=== PATIENT | female | born 1960 | race Caucasian/White ===

== ENCOUNTER 2016-06-10 09:00 | Inpatient (IN) | payer OTHER ==
--- NOTE | 2016-06-09 15:38 | GHP ---
[f rep st] PREOP HISTORY AND PHYSICAL Amended report DATE OF ADMISSION: She will be an a.m. admission for surgery at [facility] on June 18, 2016. PROBLEM: Right knee arthritis. HISTORY OF PRESENT ILLNESS: The patient is a 55-year-old woman admitted for a right total knee arthroplasty. She has had progressive pain in her right knee for a number of years. She had some type of ligament reconstruction of the right knee when she was in her 20s. She has had previous arthroscopic surgery by Dr. Post for some type of arthroscopic cleanout procedure. That operation was not helpful. She knows that her right knee is ACL deficient. She occasionally feels instability when she walks her dog. She has tried viscosupplementation injections but they helped the left knee but not the right knee. She has failed nonsurgical treatment. Her activities and function are sufficiently limited that she wants to go ahead with a right total knee arthroplasty. PAST MEDICAL HISTORY: She has a known essential tremor. She uses propranolol as needed. She has been diagnosed with sleep apnea. She tried a CPAP machine but it was not helpful. No history of heart disease, stents, DVT, or hepatitis. No history of previous MRSA staph infections. CURRENT MEDICATIONS: Propranolol. Modafinil. DRUG ALLERGIES: Penicillin causes throat swelling and hives. METAL ALLERGIES: None. LATEX ALLERGY: None. SOCIAL HISTORY: The patient is single. She is a psychotherapist. She does not smoke cigarettes and occasionally drinks alcohol. She lives alone. Her sister is coming out to help her postoperatively for 1 week. FAMILY HISTORY: Positive for hypothyroidism, congestive heart failure, and embolism. Her mother also had arthritis. PHYSICAL EXAMINATION: GENERAL: She is an alert, healthy-appearing woman. VITAL SIGNS: Height 5 feet 6 inches. Weight 160 pounds. BMI 25.8. EYES: Conjunctivae and sclerae are clear. Pupils are round and reactive. MOUTH: Good oral hygiene. No loose teeth. CHEST: Clear. HEART: Regular rhythm. No murmurs. EXTREMITIES: Pertinent findings limited to her right knee. She has a long lateral incision. There is a short medial incision. She lacks 3-5 degrees of full extension and flexes to 110 degrees. Her collateral ligaments are stable. IMAGING: Her films show degenerative arthritis in the medial compartment of her right knee. She has a single screw in her lateral femoral condyle. IMPRESSION ON ADMISSION: 1. Right knee degenerative arthritis status post ACL reconstruction. 2. Essential tremor. PLAN: She will undergo a right total knee arthroplasty. The surgery has been described to her including the risks, complications, expectations, and recovery time. I have stressed the importance of postoperative physical therapy. I have advised her that a small percentage of people do not get a good result with total knee replacement. She understands that she is relatively young for a total knee replacement and might need revision surgery in her lifetime. Anesthesia choices and nonsurgical options have been presented to her. All her questions have been answered, and she consents to surgery. /[id number]/MODL Add acc#, 06/10/16, misa MENDOZA
[2016-06-10 10:12] LABS: % IMMATURE GRANULYOCYTES 0.1 % (0.0-1.1); ABSOLUTE IMMATURE GRANULOCYTES 0.01 10^3/uL (0.00-0.10); ADD DIFF? NO; ADD MORPH? NO; ADD SCAN? NO; ATYPICAL LYMPHOCYTE FLAG 30 (0-99); FRAGMENT RBC FLAG 0 (0-99); HEMATOCRIT 42.8 % (38.0-47.0); HEMOGLOBIN 13.9 g/dL (12.6-16.3); LEFT SHIFT FLG 0 (0-99); LIPEMIA HEMOLYSIS FLAG 80 (0-99); MEAN CELL HEMOGLOBIN 28.7 pg (27.9-34.1); MEAN CELL HEMOGLOBIN CONCENTR. 32.5 g/dL (32.4-36.7); MEAN CELL VOLUME 88.2 fL (81.5-99.8); MEAN PLATELET VOLUME 11.8 fL (8.7-11.7); PLATELET CLUMPS FLAG 10 (0-99); PLATELET COUNT 313 10^3/uL (150-400); RED BLOOD CELL COUNT 4.85 10^6/uL (4.18-5.33); RED CELL DISTRIBUTION WIDTH 14.6 % (11.5-15.2)
[2016-06-18] MEDS ORDERED: ACETAMINOPHEN 325 MG TAB PO ONE (06:00)
[2016-06-18] MEDS ORDERED: POVIDONE-IODINE 20 ML in SODIUM CL IRRIG SOLUTION 500 ML IRR ONE (06:00)
[2016-06-18] MEDS ORDERED: FAMOTIDINE 20 MG TAB PO ONE (06:00)
[2016-06-18] MEDS ORDERED: DEXAMETHASONE 4 MG/ML VIAL IVP ONE (06:00)
[2016-06-18] MEDS ORDERED: CHLORHEXIDINE GLUC HIBICLENS 118 ML BTL TP ONE (06:00)
[2016-06-18] MEDS ORDERED: TRANEXAMIC ACID 730 MG in NS 100 ML IV ONE (06:00)
[2016-06-18] MEDS ORDERED: VANCOMYCIN HCL/NORMAL SALINE 250 ML IV ONE ×2 (06:00→22:00)
[2016-06-18] MEDS ORDERED: ROPI/epiNEPH/KETOROLAC JOINT COCKTAIL IU ONE (06:00)
[2016-06-18] MEDS ORDERED: ACETAMINOPHEN 325 MG TAB ONE (08:06)
[2016-06-18] MEDS ORDERED: FAMOTIDINE 20 MG TAB ONE (08:06)
[2016-06-18] MEDS ORDERED: DEXAMETHASONE 4 MG/ML VIAL ONE (08:06)
[2016-06-18] MEDS ORDERED: CEFAZOLIN 2 GM/DEXTROSE/100 ML BAG IV ONE (08:07)
[2016-06-18] MEDS ORDERED: fentaNYL 100 MCG/2 ML INJ ONE (08:42)
[2016-06-18] MEDS ORDERED: MIDAZOLAM 2 MG/2 ML VIAL ONE ×2 (08:42→09:40)
[2016-06-18] MEDS ORDERED: ONDANSETRON 4 MG/2 ML VIAL ONE (08:43)
[2016-06-18] MEDS ORDERED: LIDOCAINE 1% 5 ML SDV ID PRN (09:01)
[2016-06-18] MEDS ORDERED: LR 1,000 ML IV ONE (09:01)
[2016-06-18] MEDS ORDERED: TRANEXAMIC ACID 3,000 MG in NS 50 ML IRR ONE (09:30)
[2016-06-18] MEDS ORDERED: PROPOFOL/EMULSION 500 MG/50 ML BOTTLE IV ONE (09:43)
[2016-06-18] MEDS ORDERED: VANCOMYCIN 1 GM VIAL IV ONE ×2 (10:32)
[2016-06-18] MEDS ORDERED: ceFAZolin 1 GM/5 ML SYR ONE (10:34)
--- NOTE | 2016-06-18 11:23 | POSTOPPROG ---
Post Op Note Date of Operation: 06/18/16 Surgeon: Callum Salcido Gut Sorter: Clark Anesthesiologist: Kingsley Anesthesia: IV Sedation, Spinal Post-op Diagnosis: right knee arthritis Procedure: R TKA Inf/Abcess present in the surg proc area at time of surgery?: No EBL: 50-100 (add canal block)
[2016-06-18] MEDS ORDERED: MODAFINIL 100 MG TAB PO PRN (11:30)
[2016-06-18] MEDS ORDERED: ASCORBIC ACID 500 MG TAB PO PRN (11:30)
[2016-06-18] MEDS ORDERED: PROPRANOLOL HCL 10 MG TAB PO PRN (11:30)
[2016-06-18] MEDS ORDERED: CYCLOBENZAPRINE 10 MG TAB PO PRN (11:31)
[2016-06-18] MEDS ORDERED: ONDANSETRON 4 MG/2 ML VIAL IVP PRN (11:31)
[2016-06-18] MEDS ORDERED: POLYETHYLENE GLYCOL 3350 17 GM PKT PO PRN (11:31)
[2016-06-18] MEDS ORDERED: PHARMACY PAIN CONSULT 1 EA MISC PRN (11:31)
[2016-06-18] MEDS ORDERED: NS 500 ML IV PRN (11:31)
[2016-06-18] MEDS ORDERED: PROMETHAZINE HCL 25 MG SUPPR PR PRN (11:31)
[2016-06-18] MEDS ORDERED: diphenhydrAMINE 25 MG CAP PO PRN (11:31)
[2016-06-18] MEDS ORDERED: TEMAZEPAM 15 MG CAP PO PRN (11:31)
[2016-06-18] MEDS ORDERED: KETOROLAC 30 MG/1 ML SDV IVP PRN (11:31)
[2016-06-18] MEDS ORDERED: DIPHENOXYLATE/ATROPINE LOMOTIL 1 TAB PO PRN (11:31)
[2016-06-18] MEDS ORDERED: BISACODYL 10 MG SUPP PR PRN (11:31)
[2016-06-18] MEDS ORDERED: traMADol 50 MG TAB PO PRN (11:31)
[2016-06-18] MEDS ORDERED: METOCLOPRAMIDE 10 MG/2 ML VIAL IVP PRN (11:31)
[2016-06-18] MEDS ORDERED: LACTULOSE 20 GM/30 ML UDCUP PO PRN (11:31)
[2016-06-18] MEDS ORDERED: MAGNESIUM HYDROXIDE 30 ML UDCUP PO PRN (11:31)
[2016-06-18] MEDS ORDERED: ONDANSETRON DISINTEGRATING 4 MG TAB PO PRN (11:31)
[2016-06-18] MEDS: LR 1,000 ML IV SCH ×2 (13:49→21:37)
[2016-06-18] MEDS: ACETAMINOPHEN 325 MG TAB PO SCH ×3 (14:07→23:57)
[2016-06-18] MEDS: oxyCODONE IR 5 MG TAB PO PRN ×4 (14:24→23:57)
--- NOTE | 2016-06-18 15:34 | GOP ---
[f rep st] OPERATIVE REPORT DATE OF OPERATION: 06/18/2016 SURGEON: Callum Salcido MD TELEVISION ANCHOR: James Joy, CARD GAME OPERATOR and Lazaro Ratliff, PAC. ANESTHESIA: A combination of Marcaine spinal and IV sedation, and adductor canal block. ANESTHESIOLOGIST: Kallie Wynn DO PREOPERATIVE DIAGNOSIS: Right knee severe degenerative arthritis. POSTOPERATIVE DIAGNOSIS: Right knee severe degenerative arthritis. PROCEDURE PERFORMED: Right total knee arthroplasty, cemented, posterior stabilized, Mak and Nephe w Journey II. FINDINGS: DESCRIPTION OF PROCEDURE: The patient was given 1 g of IV vancomycin preoperatively within 60 minut es of surgery. She also received IV tranexamic acid at a dose of 10 mg/kg. She was placed on the o perating room table and given spinal anesthesia with Marcaine by Dr. Wynn. She was then placed s upine and given IV sedation. A Hernandez catheter was not used. She wore a ÓSCAR stocking and SCD on the nonoperative leg. Her right lower extremity was prepped with ChloraPrep from the upper thigh tourn iquet to the tips of the toes. It was draped free using sterile sheets, stockinette, and Ioban plas tic adhesive drape. The lower leg was wrapped with compressive Coban. Her leg was exsanguinated wi th elevation and a 6-inch compressive wrap, and a pneumatic tourniquet was inflated to 300 mmHg. Sh e had a bulky thigh and calf. The World Health Organization time-out was performed to verify the correct patient identity and the correct surgical side and site. The Mobile time-out was also performed. The Contribayo leg holding device was sterilely attached to the operating room table and used throughout the procedure to help position the knee. A straight midline incision was made centered on the france lla. Subcutaneous tissues were sharply divided and hemostasis was obtained using electrocautery. A medial subcutaneous flap was developed. The capsule and synovium were opened in medial parapatella r fashion. Extensive degenerative changes were present throughout the knee. The medial capsule and periosteum were lightly elevated off the rim of the medial tibial plateau, all the way around to th e posteromedial corner. The medial collateral ligament was released enough to balance the medial si de of the knee. In order to improve exposure, her patella was prepared first. The original thickness of the patella was measured. Peripheral osteophytes were removed. I cut a flat surface on the back of the anders a. It was sized for a 38 mm resurfacing component. I removed enough bone from the patella such regis t the remaining bone plus the thickness of the patellar component recreated the original thickness o f the patella. The composite thickness was 22 mm. The intramedullary alignment guide system was used to set up the distal femoral cut. The distal fem ur was cut in 6 degrees of valgus. I made a +2 mm cut on the distal femur. The sizing jig was used to determine proper femoral sizing. I shifted the size 5 jig anteriorly 1 mm in order to accommoda te the size 5 femoral component without notching the anterior cortex. The 5-in-1 cutting block was applied, and the anterior and posterior condylar cuts and chamfer cuts were made. The final jig was used to remove the central portion of the distal femur to accommodate the posterior stabilized femo ral component. I was careful to determine proper rotation by referencing off Whitesides line. Each cut was checked for accuracy before and after it was made. The femur was sized for a size 5 veterans adviser ior stabilized femoral component. The trial component was tapped securely into place and was an exc ellent fit. Next, the tibia was prepared. The proximal tibial cut was made using the extramedullary alignment g uide system. The cut was made in a few degrees of posterior slope. I was careful to achieve proper varus valgus alignment and proper rotation. The posterior compartment was cleared of meniscal remn ants. Osteophytes were removed from the back of femoral condyles. I checked the flexion and extens ion gaps, and they were equal, balanced and rectangular. The tibia was sized for a size 4 component. With the trial components in place, I selected a 13 mm polyethylene posterior stabilized tibial insert. The knee came to full extension and flexed to 120 degrees. Flexion beyond that point was blocked by the bulk of her leg. There was no overstuffing i n flexion. Her collateral ligaments were stable and balanced at 90 degrees in flexion and full exte nsion. The trial patellar button was applied, and tracking was checked. Tracking was excellent wit hout any digital pressure. 40 mL of the joint anesthetic cocktail was injected in the posterior capsule, the periarticular stru ctures, the quadriceps muscle and tendon areas, and the subcutaneous tissues along the skin edges. A 2nd dose of tranexamic acid was given at a dose of 10 mg/kg. The surfaces were prepared for cemen ting. They were carefully cleaned with the pulsating lavage and carefully dried. The CarboJet ewa ce was used to blow dry the cancellous surfaces. A double batch of methylmethacrylate cement with 2 g of powdered vancomycin added was mixed. While it was still in a semi liquid state, all 3 compone nts were cemented in place. Excess cement was removed before it hardened. The 13 mm trial tibial insert was re-tried and was the proper thickness. The actual component was i nserted locked into place. The knee was thoroughly irrigated one final time with a dilute Betadine solution. The tourniquet was deflated. The total tourniquet time was 43 minutes. Topical tranexam ic acid was then instilled into the wound. It was left in place for 3 or 4 minutes and then washed out with a dilute Betadine solution. The vastus medialis portion of the extensor mechanism was repaired with several interrupted figure-o f-eight #2 FiberWire sutures. The capsule and synovium were closed first with multiple interrupted [id number] 0 PDS sutures, followed by a running #2 barbed Ethicon Stratafix PDO suture. Subcut aneous tissues were closed with a running 0 barbed Ethicon Stratafix Monoderm suture. The skin was closed with a running 3-0 barbed Ethicon Stratafix Monoderm subcuticular suture. The skin was derek d with half-inch Steri-Strips. The wound was covered with Xeroform gauze and flat 4 x 4's, and knee was wrapped with Kerlix and 6-inch compressive wrap. A long-leg ÓSCAR stocking and SCD were applied, followed by the cooling device. The patient wore a stocking and SCD on the opposite leg during the procedure. I used a size 5 cemented Mak and Nephew Oxinium posterior stabilized femoral component, a size 4 c emented tibial base plate, a 13 mm posterior stabilized tibial insert, and a 38 mm cemented round al l-polyethylene resurfacing patellar component. The estimated blood loss following placement of the tourniquet was about 100 cc. The sponge and needle counts were correct on 2 occasions. The patient was awakened from anesthesia, transferred to her gurney, and taken to PACU in satisfacto ry condition. There were no intraoperative complications. In the PACU, for additional postop pain control, Dr. Wynn administered an adductor canal block. James Joy and Andrew Ratliff acted as surgical assistants. Their assistance was a aidan thompson. /[id number]/MODL
[2016-06-18] MEDS: TRANEXAMIC ACID 650 MG TAB PO SCH (19:21)
[2016-06-18] MEDS: ASPIRIN 325 MG TAB PO SCH (20:35)
[2016-06-18] MEDS: SENNOSIDES/DOCUSATE SODIUM TAB PO SCH (20:35)
[2016-06-18] MEDS: FAMOTIDINE 20 MG TAB PO SCH (20:36)
[2016-06-19] MEDS: oxyCODONE IR 5 MG TAB PO PRN ×4 (04:20→13:46)
[2016-06-19] MEDS: TRANEXAMIC ACID 650 MG TAB PO SCH ×2 (04:20→12:41)
[2016-06-19 05:34] LABS: HEMATOCRIT 38.2 % (38.0-47.0); HEMOGLOBIN 12.4 g/dL (12.6-16.3)
[2016-06-19] MEDS: ACETAMINOPHEN 325 MG TAB PO SCH ×2 (06:23→12:41)
--- NOTE | 2016-06-19 07:28 | SOAPPROG ---
SOAP Progress Note Assessment/Plan: Assessment: Afebrile. Awake and alert. Moderate pain. Has been up and walking in room. H/H is good. Films look good. Dsg is dry. Plan: Up with PT DC later today. 06/19/16 07:27 Objective: Vital Signs Temp Pulse Resp BP Pulse Ox 36.4 C 61 16 90/50 L 89 L 06/19/16 04:00 06/19/16 04:00 06/19/16 04:00 06/19/16 04:00 06/19/16 04:00 Laboratory Results 06/19/16 04:49 06/18/16 06/19/16 06/20/16 05:59 05:59 05:59 Intake Total 4350 Output Total 0 Balance 2300 ICD10 Worksheet Patient Problems: Problems Problem Status Onset Osteoarthritis of right knee Acute
--- NOTE | 2016-06-19 07:32 | PDIAF ---
- Diagnosis Diagnosis: right knee arthritis Code Status: Full Code - Medication Management Discharge Medications: Medications to Continue on Transfer Ascorbic Acid [Vitamin C 500 mg (*)] 100 mg PO BID PRN 05/21/16 [Last Taken ] Herbals/Supplements -Info Only 1 ea PO DAILY 05/21/16 [Last Taken 06/11/16] Modafinil [Provigil 100 mg (*)] 50 mg PO DAILY PRN 05/21/16 [Last Taken 06/15/16 ] Multivitamins [Multivitamin (*)] 1 each PO DAILY 05/21/16 [Last Taken 06/11/16] Propranolol HCl [Inderal 10mg (*)] 10 mg PO DAILY PRN 05/21/16 [Last Taken 06/11] Acetaminophen [Tylenol 325mg (*)] 650 mg PO Q6HRS #0 tab 06/19/16 [Last Taken Unknown] Aspirin [Aspirin 325 mg (*)] 325 mg PO DAILY #21 tab 06/19/16 [Last Taken Unknown] Ondansetron Odt [Zofran Odt 4 mg (*)] 4 mg PO Q4HRS PRN #0 tab 06/19/16 [Last Taken Unknown] oxyCODONE IR [Oxycodone Ir (*)] 5 - 10 mg PO Q3HRS PRN #0 tab 06/19/16 [Last Taken Unknown] traMADol [Ultram 50 mg (*)] 50 mg PO Q6HRS PRN #0 tab 06/19/16 [Last Taken Unknown] Discharge Medications: Refer to the Discharge Home Medication list for PRN reason. PICC Care - Routine: N/A - Orders Services needed: Home Care, Physical Therapy Home Care Face to Face: I certify that this patient was under my care and that I had the required ochl-on-ottb encounter meeting the encounter requirements on the discharge day. My findings support the fact that the patient is homebound as defined in CMS Chapter 7 Medicare Benefits Manual 30.1.1, The condition of the patient is such that there exists a normal inability to leave home and consequently, leaving home would require a considerable and taxing effort. Diet Recommendation: no restrictions on diet Diet Texture: Regular Texture Diet Hernandez: Not applicable Tito Stockings Discontinue Date: 1 week Wound Care Instructions: keep clean and dry. You may shower. Activity/Weight Bearing Restrictions: as tolerated. - Follow Up Care Current Providers and Referrals: Salina Reece MD [Primary Care Provider] - Callum Salcido MD [Medical Doctor] - 07/04/16
--- NOTE | 2016-06-19 07:46 | GDS ---
[f rep st] DISCHARGE SUMMARY ADMISSION DIAGNOSIS: Right knee severe degenerative arthritis. DISCHARGE DIAGNOSIS: Right knee severe degenerative arthritis. OPERATION PERFORMED: June 19, 2016, a right total knee arthroplasty. POSTOPERATIVE COMPLICATIONS: None. CONDITION ON DISCHARGE: Improved. DESCRIPTION OF HOSPITAL COURSE: The patient was admitted to the hospital on the morning of surgery. Her admission CBC was normal. The same day, under a combination of Marcaine, spinal anesthesia, I V sedation, and adductor canal block, she underwent a right total knee arthroplasty. Postoperativel y, she was treated with multimodal DVT prophylaxis, including aspirin and early mobilization. On e first postoperative day, her hemoglobin and hematocrit were 12.4 and 38.2. She did not require an y transfused blood. She was seen by Physical Therapy and made good progress with ambulation, knee r kaylen of motion, and stairs. By the time of discharge, she was afebrile and was independent, walking with a walker. DISPOSITION: Patient is discharged to her home. She will have home physical therapy. She may prog ress to full weightbearing on the right as tolerated. Continue ÓSCAR stockings for 1 week. Continue aspirin 325 mg p.o. daily for 21 days. She will have home physical therapy followed by outpatient p hysical therapy. I will see her back in the office on July 04, 2016. If there are any problems, she is to call me at the office. /[id number]/MODL
[2016-06-19] MEDS: FAMOTIDINE 20 MG TAB PO SCH (08:40)
[2016-06-19] MEDS: SENNOSIDES/DOCUSATE SODIUM TAB PO SCH (08:40)
[2016-06-19] MEDS: ASPIRIN 325 MG TAB PO SCH (08:40)
[2016-06-19] MEDS ORDERED: Herbals/Supplements -Info Only PO SCH (09:00)
[2016-06-19] MEDS ORDERED: MULTIVITAMINS 1 EACH TAB PO SCH (09:00)
[2016-06-19 09:20] VITALS: PULSE 60; RESP 14; TEMP 98.2; O2SAT 97
[2016-06-19 11:55] VITALS: BP 104/51
== END 2016-06-19 14:10 | disposition home health service (06) | DRG 470 ==
LOC: F3N 06-18 07:18
PROVIDERS: ADMIT Orthopaedic Surgery; ATTEND Orthopaedic Surgery
PROC: 0SRC0J9 Replacement of Right Knee Joint with Synthetic Substitute, Cemented, Open Approach (ICD-10-PCS; principal; 2016-06-18 09:15)
DX: M17.11 Unilateral primary osteoarthritis, right knee (principal); G25.0 Essential tremor; G47.33 Obstructive sleep apnea (adult) (pediatric)
CPT/HCPCS: 97110-GP; 97116-GP; 97161-GP; 97165-GO; C1713; J0171; J0690; J1100; J1885; J2250; J2405; J2704; J2795; J3010; J3370

== ENCOUNTER → 2016-06-26 | Outpatient (CLI) | payer OTHER | LOC: FIMAGING 16:33 | PROVIDERS: ATTEND Orthopaedic Surgery | DX: M79.661 Pain in right lower leg (principal); M79.89 Other specified soft tissue disorders; Z96.651 Presence of right artificial knee joint ==

== ENCOUNTER 2017-05-13 19:15 | Emergency (ER) | payer OTHER ==
[2017-05-13 19:22] VITALS: RESP 16; TEMP 97.9; O2SAT 98
--- NOTE | 2017-05-13 19:32 | EDPHY ---
H & P Stated Complaint: FALL OFF HORSE ONTO LEFT SIDE,HIP ARM SHOULDER NO LOC Time Seen by Provider: 05/13/17 19:27 HPI/ROS: CHIEF COMPLAINT: Fell force HISTORY OF PRESENT ILLNESS: Patient is a 56-year-old female who was riding a horse in a arena of soft dirt. She fell onto her left side. She has pain in her left ribs left hip and left knee. She is ambulatory. She has pain with deep inspiration. She denies head injury neck or back pain. No loss of consciousness. No vomiting. She has a history of essential tremor but nothing else. REVIEW OF SYSTEMS: Constitutional: denies: chills, fever, recent illness, recent injury EENTM: denies: blurred vision, double vision, nose congestion Respiratory: denies: cough, shortness of breath Cardiac: denies: chest pain, irregular heart rate, lightheadedness, palpitations Gastrointestinal/Abdominal: denies: abdominal pain, diarrhea, nausea, vomiting, blood streaked stools Genitourinary: denies: dysuria, frequency, hematuria, pain Musculoskeletal: See HPI Skin: denies: lesions, rash, jaundice, bruising Neurological: denies: headache, numbness, paresthesia, tingling, dizziness, weakness Hematologic/Lymphatic: denies: blood clots, easy bleeding, easy bruising Immunologic/allergic: denies: HIV/AIDS, transplant EXAM: GENERAL: Well-appearing, well-nourished and in no acute distress. HEAD: Atraumatic, normocephalic. EYES: Pupils equal round and reactive to light, extraocular movements intact, sclera anicteric, conjunctiva are normal. ENT: TMs normal, nares patent, oropharynx clear without exudates. Moist mucous membranes. NECK: Normal range of motion, supple without lymphadenopathy or JVD. LUNGS: Left rib pain posteriorly, no crepitus, Breath sounds clear to auscultation bilaterally and equal. No wheezes rales or rhonchi. HEART: Regular rate and rhythm without murmurs, rubs or gallops. ABDOMEN: Soft, nontender, normoactive bowel sounds. No guarding, no rebound. No masses appreciated. BACK: No CVA tenderness, no spinal tenderness, step-offs or deformities EXTREMITIES: No obvious swelling or deformity. Ambulatory. NEUROLOGICAL: Cranial nerves II through XII grossly intact. Normal speech, normal gait. 5/5 strength, normal movement in all extremities, normal sensation PSYCH: Normal mood, normal affect. SKIN: Warm, dry, normal turgor, no visible rashes or lesions. Source: Patient Exam Limitations: No limitations - Personal History Current Tetanus/Diphtheria Vaccine: Yes Current Tetanus Diphtheria and Acellular Pertussis (TDAP): Yes - Medical/Surgical History Hx Asthma: No Hx Chronic Respiratory Disease: No Hx Diabetes: No Hx Cardiac Disease: No Hx Renal Disease: No Hx Cirrhosis: No Hx Alcoholism: No Hx HIV/AIDS: No Hx Splenectomy or Spleen Trauma: No Other PMH: R. Shoulder Repair, R. Knee Surgery, L. Knee Surgery, Essential Tremors, Sleep Apnea - Family History Significant Family History: No pertinent family hx - Social History Smoking Status: Never smoked Alcohol Use: Sober Drug Use: None Constitutional: Initial Vital Signs Temperature (C) 36.6 C 05/13/17 19:19 Heart Rate 73 05/13/17 19:19 Respiratory Rate 16 05/13/17 19:19 Blood Pressure 129/66 H 05/13/17 19:19 O2 Sat (%) 98 05/13/17 19:19 O2 Delivery Mode Room Air Allergies/Adverse Reactions: Penicillins Allergy (Verified 05/13/17 19:22) UNABLE TO BREATHE Home Medications: Medication Instructions Recorded Ascorbic Acid [Vitamin C 500 mg 100 mg PO BID PRN 05/21/16 (*)] Herbals/Supplements -Info Only 1 ea PO DAILY 05/21/16 Multivitamins [Multivitamin (*)] 1 each PO DAILY 05/21/16 Propranolol HCl [Inderal 10mg (*)] 10 mg PO DAILY PRN 05/21/16 Acetaminophen [Tylenol 325mg (*)] 650 mg PO Q6HRS #0 tab 06/19/16 oxyCODONE/APAP 5/325 [Percocet 1 - 2 tab PO Q4H PRN #10 tab 05/13/17 5/325 (*)] Medical Decision Making - Diagnostics Imaging: Discussed imaging studies w/ at home independent call center agent Radiologist Procedures: Procedure: Splint placement. A straight leg splint was applied. After application of the splint I returned and re-examined the patient. The splint was adequately immobilizing the joint and distal to the splint the patient's circulation and sensation was intact. ED Course/Re-evaluation: Patient has a proximal fibular head fracture on x-ray. She denies any ankle pain. She does have some tenderness to her mid fibula region. I will x-ray the tib-fib as well. She did not complain of this initially. She is able to bear weight and ambulate. 8:30 p.m. We discussed the imaging results. She does have rib fractures as well. I spoke with Dr. Pablo who recommends Meliton wrap versus Bma boot for the fibular head fracture. She does not need to be nonweightbearing. Patient' s friend is requesting CT scan. She does not have altered mental status to me but does have a mild headache. Head CT ordered in this adult patient for trauma for the following indication: The headache, confusion 9:00 p.m. the patient is feeling much better. We discussed her head CT. She is reassured. She probably has a mild concussion. We will place her in a straight leg brace. She can be weight-bearing according to Orthopedics. Dr. Pablo. She will follow up with him. We discussed rib injuries and healing process. She is requesting a prescription for Percocet. Differential Diagnosis: Partial list of the Differential diagnosis considered include but were not limited to; fibula fracture, knee injury, rib injury, pneumothorax and although unlikely based on the history and physical exam, I also considered head injury, neck injury, pelvic injury. I discussed these differential diagnoses and the plan with the patient as well as the usual and expected course. The patient understands that the diagnosis is provisional and that in medicine we are not always correct and that further workup is often warranted. Usual and customary warnings were given. All of the patient's questions were answered. The patient was instructed to return to the emergency department should the symptoms at all worsen or return, otherwise to followup with the physician as we discussed. - Data Points Laboratory Results: Laboratory Results 05/13/17 19:37 05/13/17 19:37 Medications Given: Discontinued Medications Hydrocodone Bitart/Acetaminophen ([place] 5/325mg Prepack#6) 1 btl TAKEHOME EDNOW ONE Stop: 05/13/17 21:27 Last Admin: 05/13/17 21:35 Dose: 1 btl Oxycodone/Acetaminophen (Percocet 5/325) 1 tab PO EDNOW ONE Stop: 05/13/17 20:47 Last Admin: 05/13/17 20:47 Dose: 1 tab Departure - Departure Disposition: Home, Routine, Self-Care Clinical Impression: Multiple fractures of ribs, left side, initial encounter for closed fracture Fracture of proximal end of left fibula Qualifiers: Encounter type: initial encounter Fracture type: closed Fracture morphology: unspecified fracture morphology Qualified Code(s): S82.832A - Other fracture of upper and lower end of left fibula, initial encounter for closed fracture Concussion Qualifiers: Encounter type: initial encounter Loss of consciousness presence/duration: with LOC of unspecified duration Qualified Code(s): S06.0X9A - Concussion with loss of consciousness of unspecified duration, initial encounter Condition: Fair Instructions: Hydrocodone/Acetaminophen (By mouth), Leg Fracture (ED), Rib Fracture (ED), Concussion (ED) Referrals: Maurilio Pablo MD [Medical Doctor] - 5-7 days, call for appt. Salina Reece MD [Primary Care Provider] - 2-3 days, call for appt. Prescriptions: oxyCODONE/APAP 5/325 [Percocet 5/325 (*)] 1 - 2 tab PO Q4H PRN #10 tab PRN Reason: Pain, Severe
[2017-05-13 19:47] LABS: PLATELET COUNT 328 10^3/uL (150-400)
[2017-05-13] MEDS ORDERED: OXYCODONE/APAP 5/325 TAB ONE (20:45)
[2017-05-13] MEDS ORDERED: OXYCODONE/APAP 5/325 TAB PO ONE (20:46)
[2017-05-13] MEDS ORDERED: HYDROCOD/APAP 5/325 PREPACK#6 BTL TAKEHOME ONE (21:26)
[2017-05-13 21:49] VITALS: BP 125/69; PULSE 62
== END 2017-05-13 21:48 | disposition home or self-care (01) ==
DX: S22.42XA Multiple fractures of ribs, left side, initial encounter for closed fracture (principal); S82.832A Other fracture of upper and lower end of left fibula, initial encounter for closed fracture; S06.0X9A Concussion with loss of consciousness of unspecified duration, initial encounter; V80.010A Animal-rider injured by fall from or being thrown from horse in noncollision accident, initial encounter; Y99.8 Other external cause status; Y93.52 Activity, horseback riding
CPT/HCPCS: L1830

== ENCOUNTER 2017-05-23 13:33 | Emergency (ER) | payer OTHER ==
--- NOTE | 2017-05-23 13:50 | EDPHY ---
H & P Time Seen by Provider: 05/23/17 13:40 HPI/ROS: CHIEF COMPLAINT: Difficulty breathing HISTORY OF PRESENT ILLNESS: Patient is a 48-year-old female who presents emergency department with increasing shortness of breath. The patient states that on 05/13 she was thrown from a horse. She was seen in the emergency department and diagnosed with left-sided rib fractures, left fibular fracture, and concussion. She saw her orthopedic physician yesterday, Dr. Salcido. He prescribed her tramadol. Patient states that when she woke this morning she had increasing shortness of breath. She felt as though her left lung was congested. She denies any significant cough. She feels fatigued. No fevers or chills. No nausea or vomiting. She still has moderate pain with movement and her left-sided ribs. No significant headache. REVIEW OF SYSTEMS: My complete review of systems is negative except as mentioned in the HPI. Past Medical/Surgical History: Includes sleep apnea, central tremor, left-sided rib fracture, left fibular fracture, concussion Past surgical history: Right shoulder surgery, right knee surgery, left knee surgery Social history: Patient does not smoke Smoking Status: Never smoked Physical Exam: Vitals noted GENERAL: Mild acute distress with movement, alert. HEENT: Eyes normal to inspection, normal. NECK: [No thyromegaly, no lymphadenopathy, supple. No spinal tenderness RESPIRATORY: Left lateral chest wall tenderness palpation with no crepitus. No visible bruising. No deformity. Clear to auscultation bilaterally, no rales , rhonchi or wheezing. CVS: Regular rate and rhythm, no rubs, murmurs, or gallops. ABDOMEN: Soft, nontender, nondistended, no organomegaly. Benign BACK: Normal to inspection, no CVA tenderness. No spinal tenderness SKIN: Normal color, no rash, warm, dry. No pallor. EXTREMITIES: No pedal edema, no joint swelling. NEURO/PSYCH: Alert and oriented x3, normal mood and affect, normal motor sensory exam. No obvious cranial nerve deficit. Constitutional: Initial Vital Signs Temperature (C) 37.0 C 05/23/17 13:37 Heart Rate 82 05/23/17 13:37 Respiratory Rate 18 05/23/17 13:37 Blood Pressure 105/72 05/23/17 13:37 O2 Sat (%) 96 05/23/17 13:37 O2 Delivery Mode Room Air Allergies/Adverse Reactions: Penicillins Allergy (Verified 05/13/17 19:22) UNABLE TO BREATHE Home Medications: Medication Instructions Recorded traMADol 05/23/17 Medical Decision Making ED Course/Re-evaluation: In the emergency department I discussed possible etiologies with the patient. I answered all her questions. Chest x-ray was ordered. Chest x-ray: No acute disease noted. No significant infiltrate. Noted efusion. No hemothorax. No pneumothorax. I discussed the results with the patient. She will be placed on incentive spirometer. She was given [place]. She will follow up with primary care physician. She was given warnings prior to leaving. She will return with worsening symptoms. Differential Diagnosis: My differential includes but is not limited to rib fractures, atelectasis, pneumonia, pneumothorax, hemothorax, pleurisy, head injury Departure - Departure Disposition: Home, Routine, Self-Care Clinical Impression: Rib fractures Qualifiers: Encounter type: subsequent encounter Rib fracture type: multiple ribs Fracture type: closed Laterality: left Fracture healing: with routine healing Qualified Code(s): S22.42XD - Multiple fractures of ribs, left side, subsequent encounter for fracture with routine healing Condition: Good Instructions: Rib Fracture (ED) Additional Instructions: Use your incentive spirometer 5 times daily. Follow up with her primary care physician. Return with increasing shortness of breath. Referrals: Salina Reece MD [Primary Care Provider] - 2-3 days, call for appt.
[2017-05-23 15:32] VITALS: BP 115/68
== END 2017-05-23 15:30 | disposition home or self-care (01) ==
DX: S22.42XD Multiple fractures of ribs, left side, subsequent encounter for fracture with routine healing (principal); V80.010D Animal-rider injured by fall from or being thrown from horse in noncollision accident, subsequent encounter

== ENCOUNTER → 2017-06-11 | Outpatient (CLI) | payer OTHER | LOC: BMCIMAGING 14:08 | PROVIDERS: ATTEND Orthopaedic Surgery | DX: Z13.820 Encounter for screening for osteoporosis (principal) ==